=== PATIENT | female | born 1980 | race African-American/Black ===

== ENCOUNTER 2017-09-14 23:40 | Emergency (ER) | payer OTHER ==
[~2017-09-14] VITALS: Ht 170.2 cm; Wt 90.7 kg
[~2017-09-14 23:40] MED LIST: AUGMENTIN 875875 MG PO; BUTALB-APAP-CA1 EACH PO; DEPO-PROVERA; FISH OIL 1,001000 M2 PO; FLONASE 0.05%50 MCG NASAL; GLUCOPHAGE XR500 MG PO; HYPERTENSION MED; IBUPROFEN 600600 M1 PO; IBUPROFEN 800800 MG PO; LISINOPRIL10 MG PO; LOPRESSOR 12.12.5 MG PO; METOPROLOL SUCC25 M1 PO; NOHOMEMEDICATIONS; NORCO 5-325 TA1 EACH PO; PHENERGAN 25 MG25 M1 PO; PRENATAL; TRAMADOL 50 MG50 MG PO; TUSSIONEX PENN473 ML PO; ULTRAM 50MG TAB50 MG PO; VENTOLIN HFA 1818 GM INH; VITAMIN D5000 UNIT PO; ZPAK PO
[2017-09-15] MEDS ORDERED: LOPRESSOR50 PO (02:11)
[2017-09-15] MEDS ORDERED: HYDROCHLOROTHIA25 M2 PO (02:12)
[2017-09-15] MEDS ORDERED: COMPAZINE10 MG PO (02:47)
[2017-09-15 03:12] VITALS: BP 150/108
== END 2017-09-15 03:10 | disposition home or self-care (01) ==
LOC: ER 23:40
DX: G43.909 Migraine, unspecified, not intractable, without status migrainosus (principal); I10 Essential (primary) hypertension

== ENCOUNTER → 2020-03-18 | Outpatient (CLI) | payer OTHER ==
[~2020-03-18] MED LIST changes: +COMPAZINE10 MG PO; +HYDROCHLOROTHIA25 M2 PO; +LOPRESSOR50 PO
== END ==
LOC: ULTRA 13:44
PROVIDERS: ATTEND Nurse Practitioner
DX: N63.10 Unspecified lump in the right breast, unspecified quadrant (principal)

== ENCOUNTER 2020-12-23 12:16 | Emergency (ER) | payer OTHER ==
[~2020-12-23] VITALS: Ht 170.2 cm; Wt 95.3 kg
[2020-12-23 12:19] VITALS: BP 186/120
[2020-12-23] MEDS ORDERED: BACTRIM DS TAB1 EAC1 PO (13:12)
== END 2020-12-23 13:29 | disposition home or self-care (01) ==
LOC: ER 12:16
DX: L02.416 Cutaneous abscess of left lower limb (principal); I10 Essential (primary) hypertension; G43.909 Migraine, unspecified, not intractable, without status migrainosus; Z98.51 Tubal ligation status; Z72.89 Other problems related to lifestyle; Z79.899 Other long term (current) drug therapy